=== PATIENT | male | born 1960 | race Caucasian/White ===

== ENCOUNTER 2016-08-11 05:27 | Inpatient (IN) | payer OTHER ==
[2016-08-10 11:54] LABS: BASOPHILS 0.3 % (0.0-2.0); EOSINOPHILS 1.2 % (0-7); HEMATOCRIT 49.3 % (42.0-54.0); HEMOGLOBIN 17.4 g/dL (13.5-17.5); IMMATURE GRANULOCYTES 0.3 % (0-5); LYMPHOCYTES 14.2 % (15-50); MCH 31.8 pg (26.0-34.0); MCHC 35.3 g/dL (31.0-37.0); MCV 90.1 fL (80.0-100.0); MONOCYTES 6.5 % (2-11); NEUTROPHILS 77.5 % (40-80); PLATELET COUNT 203 10x3/uL (130-400); RBC 5.47 10x6/uL (4.20-6.10); RDW 12.5 % (11.5-14.5); WBC 10.3 10x3/uL (4.8-10.8)
[2016-08-10 12:20] LABS: CALC OSMOLALITY 275 mosm/kg (275-300); CARBON DIOXIDE 26.9 mmol/L (21.0-32.0); CHLORIDE - SERUM 105 mmol/L (98-107); CREATININE - SERUM 0.8 mg/dL (0.6-1.3); GLUCOSE 81 mg/dL (74-106); POTASSIUM - SERUM 3.9 mmol/L (3.5-5.1); SODIUM 140 mmol/L (136-145); UREA NITROGEN 8 mg/dL (7-18); eGFR NON AFRICAN AMERICAN > 90 mL/min (90-120)
[~2016-08-11] VITALS: Ht 188 cm; Wt 98.9 kg
[2016-08-11] VITALS (10 sets, daily range): BP systolic 108–132; BP diastolic 54–75; BMI 27.6; BMI 28.0
--- NOTE | ~2016-08-11 | OP ---
PATIENT NAME: DIANN NEWMAN MEDICAL RECORD: [id number] :60 LOCATION:[id number] ADMISSION DATE:08/11/16 SURGEON: PANCHO LARKIN MD DATE OF OPERATION: 08/11/2016 PREOPERATIVE DIAGNOSES: 1. Right colon polyp. 2. Hypertension. 3. Gastroesophageal reflux disease. 4. Tobacco dependence syndrome. POSTOPERATIVE DIAGNOSES: 1. Right colon polyp. 2. Hypertension. 3. Gastroesophageal reflux disease. 4. Tobacco dependence syndrome. PROCEDURE: Hand-assisted laparoscopic right hemicolectomy. SURGEON: Pancho Larkin MD REPORT OF PROCEDURE: The patient's abdomen was prepped and draped in sterile fashion. A cutdown was made around the patient's umbilicus. Electrocautery was used to dissect through the subcutaneous tissues and fascia. We entered the abdominal cavity. Once inside, then a Gelport was inserted with a 5 mm trocar within it. Under direct visualization, a 5 mm trocar was placed in the epigastrium and another 5-mm trocar was placed in the right subcostal region. The right colon was dissected medially, taking down the white line of Toldt and mobilizing this towards the midline. We took down the hepatic flexure and continued our dissection over top of the patient's duodenum and was eventually able to freely mobilize this portion of the colon and distal small bowel. We then inspected the abdomen and saw no sign of any carcinomatosis or lesions present throughout the abdominal cavity. At this point, we eviscerated the colon through the wound protector of the Gelport. The distal ileum was transected about 3 cm proximal to the terminal ileum using a 60 blue load PASCUAL stapler. The transverse colon was transected proximally using a 60 blue load PASCUAL stapler. The patient's mass has been found and was visible in the middle of the specimen. The mesentery was taken down with sequential clamp and tie technique using multiple 3-0 silks. The main right colic vessels were tied off with 2-0 silk stick ties. We then performed a [id number] anastomosis using a 60 blue load PASCUAL stapler at the terminal ileum to the proximal transverse colon. Enterotomies were closed off with a 30 blue load TA stapler and was then oversewn with Lemberted 3-0 silks. This was placed back into the abdominal cavity and the omentum was placed over top of it. The abdomen was then irrigated out thoroughly with normal saline and care was taken to make sure there was no sign of any active bleeding. At this point, the midline fascia was closed with running #1 loop PDS times 2. After the incision was irrigated out and it was closed with martha. COMPLICATIONS: None. CONDITION: Stable. ANESTHESIA: General endotracheal. OPERATIVE REPORT [id number] DIANN NEWMAN BLOOD LOSS: 50 mL. TRANSINT:[id number] Voice Confirmation ID: [id number] DOCUMENT ID: [id number] CC: Azalia Raymond APN [facility] Mclaughlin MD CC: NELL ADAME MD [id number] DICTATION DATE: 08/11/16 1239 VEGETABLE HARVEST WORKER: 08/11/16 1334 ADM [address] [place] [address]
[~2016-08-11 05:27] MED LIST: COZAAR50 MG PO; HYDROCODONE-APA1 TAB PO
--- NOTE | 2016-08-11 13:14 | NUR ---
DR LUA CONSULTED ABOUT THE PATIENTS PAIN OF AN 8. DR LUA ADVISED TO DISCHARGE THE PATIENT TO THE FLOOR AND THE PATIENT MAY BE PLACED ON HIS GASOLINE FINISHER PER SURGEON.
--- NOTE | 2016-08-11 13:32 | NUR ---
RECD TO ROOM 2217 VIA BED FROM RR AWAKE ALERT COLOR ADQ SKIN WARM AND DRY AT PRESENT.ABD INCISIONS CLEAN AND DRY FAMILY AT BEDSIDE AT PRESENT PLAN OF CARE GONE OVER WITH PT AND FAMILY AT PRESENT.
--- NOTE | 2016-08-11 15:00 | NUR ---
C/O PAIN ELECTRONICS TECH IN PROGRESS AT PRESENT BUTTON IN HAND AT PRESENT.
--- NOTE | 2016-08-11 15:57 | NUR ---
Patient Name: DIANN NEWMAN Admission Status: Elective Accout number: [id number] Admission Date: 08-11-2016 : 1960 Admission Diagnosis: Attending: NEREYDA Current LOS: 1 Anticipated DC Date: 08-17-2016 Planned Disposition: Home Primary Insurance: [employer] Discharge Planning Comments: CM MET WITH PATIENT AND (JITENDRA) REGARDING D/C NEEDS AND PLANS. PATIENTS STATED THEY HAVE 3 STEPS W/RAILS TO ENTER HOME AND NO STAIRS INSIDE. PATIENTS DAUGHTER (NEGRITO) WILL DRIVE HIM HOME AT DISCHARGE. PATIENT IS INDEPENDENT WITH HIS CARE AND HAS NO DME AT HOME PER . PATIENTS PCP IS DR. JIMENEZ AND PHARMACY IS [facility] ON [facility]. PATIENT AND REFUSED THE OFFER FOR HOME HEALTH AT THIS TIME. CM WILL CONTINUE TO FOLLOW PATIENT WITH D/C NEEDS AND PLANS. PCP DR. JIMENEZ PHARMACY [facility] ON [address] [phone] JITENDRA () [phone] Animal Cruelty Investigation Supervisor: Riya Noel Is the patient Alert and Oriented? Yes 0 * How many steps to enter\exit or inside your home? 3 W/RAILS 0 * PCP DR. JIMENEZ 0 * Pharmacy [facility] ON [address] 0 * Preadmission Environment Home with Family 0 * ADLs Independent 0 * Equipment None 0 * List name and contact numbers for known caregivers / representatives who currently or will assist patient after discharge: JITENDRA () [phone] 0 * Community resources currently utilized None 0 * Additional services required to return to the preadmission environment? Yes 0 * Can the patient safely return to the preadmission environment? Yes 0 * Has this patient been hospitalized within the prior 30 days at any hospital? No 0 Grand Total: 0
--- NOTE | 2016-08-11 17:16 | NUR ---
STATUS REMAINS UNCHGD AT PRESENT AT BEDSIDE AT PRESENT.
--- NOTE | 2016-08-11 20:00 | NUR ---
ASSESSMENT PER FLOWSHEET. ABDOMINAL INCISION DRSG C/D/I LAP SITESD X2 C/D/I. DELGADO TO BEDSIDE DRAINAGE WITH YELLOW URINE. IV PATENT LEFT FOREARM OF NS AT 125CC'S/HR GEOPHYSICAL LABORATORY CHIEF IN USE OF DILAUDID WITH SETTINGS AT 0.2MG Q10MIN WITH 4MG Q4H L/O. AT BEDSIDE. SR UP X2 CALL LIGHT WITHIN REACH.
--- NOTE | 2016-08-11 22:00 | NUR ---
AWAKE MEDS GIVEN PER JUL. EATING ICE CHIPS NO N OR V NOTED. AT BEDSIDE.
[2016-08-12] VITALS: BP 114/62
--- NOTE | 2016-08-12 | NUR ---
SLEEPING FOR SHORT PERIODS OF TIME.
--- NOTE | 2016-08-12 03:00 | NUR ---
RESTING AT THIS TIME DENIES NEEDS.
[2016-08-12 04:00] VITALS: BP 110/64
[2016-08-12 05:51] LABS: BASOPHILS 0.1 % (0.0-2.0); EOSINOPHILS 0 % (0-7); HEMATOCRIT 43.6 % (42.0-54.0); HEMOGLOBIN 14.5 g/dL (13.5-17.5); IMMATURE GRANULOCYTES 0.2 % (0-5); LYMPHOCYTES 10.1 % (15-50); MCH 30.4 pg (26.0-34.0); MCHC 33.3 g/dL (31.0-37.0); MCV 91.4 fL (80.0-100.0); MEAN PLATELET VOLUME 9.7 fL (7.4-10.4); MONOCYTES 9.4 % (2-11); NEUTROPHILS 80.2 % (40-80); PLATELET COUNT 202 10x3/uL (130-400); RBC 4.77 10x6/uL (4.20-6.10); RDW 12.6 % (11.5-14.5)
[2016-08-12 05:54] LABS: WBC 13.1 10x3/uL (4.8-10.8)
[2016-08-12 06:04] LABS: CALC OSMOLALITY 274 mosm/kg (275-300); CALCIUM 8.1 mg/dL (8.5-10.1); CARBON DIOXIDE 22.2 mmol/L (21.0-32.0); CHLORIDE - SERUM 105 mmol/L (98-107); CREATININE - SERUM 0.7 mg/dL (0.6-1.3); GLUCOSE 99 mg/dL (74-106); POTASSIUM - SERUM 3.9 mmol/L (3.5-5.1); SODIUM 138 mmol/L (136-145); UREA NITROGEN 9 mg/dL (7-18); eGFR NON AFRICAN AMERICAN > 90 mL/min (90-120)
--- NOTE | 2016-08-12 07:20 | NUR ---
ASSESSMENT PER FLOW SHEET.PT WITHOUT DISTRESS.DRESSING TO ABDOMEN CLEAN AND DRY AND INTACT. PAIN 7/10 SCALE.BOLUS PER MILKING SYSTEM INSTALLER ORDERED PER JUL.WANTS DELGADO OUT. PT WANTS FOOD. CALL LIGHT IN REACH
[2016-08-12 08:51] VITALS: BP 116/62
--- NOTE | 2016-08-12 10:59 | NUR ---
DELGADO DC WITH CATH TIP INTACT. 450CC OF YELLOW URINE IN BAG.
[2016-08-12 12:19] VITALS: Ht 188 cm; Wt 98.9 kg
[2016-08-12 12:48] VITALS: BP 111/66
--- NOTE | 2016-08-12 14:47 | NUR ---
FAMILY AT SIDE,WITHOUT DISTRESS.STATES PAIN REMAINS 8/10 SCAKLE TO ABDOMEN,BUT THEN SAYS 5.FAMILY AT BEDSIDE.MONITOR
--- NOTE | 2016-08-12 16:10 | NUR ---
REMAINS WITHOUT NEEDS.FAMILY AT BEDSIDE.
--- NOTE | 2016-08-12 16:21 | NUR ---
PT VOIDED 250CC OF URINE IN URINAL.REMAINS WITHOUT NEEDS.CALL LIGHT IN REACH
[2016-08-12 16:28] VITALS: BP 114/62
--- NOTE | 2016-08-12 19:44 | NUR ---
C/O NAUSEA NO EMESIS. ZOFRAN 4MG IVP GIVEN FOR RELIEF.
--- NOTE | 2016-08-12 20:00 | NUR ---
ASSESSMENT PER FLOWSHEET. IV PATENT LEFT WRIST OF NS AT 125CC'S/HR. VESSEL SCRAPPER HELPER OF DILAUDID IN USE WITH SETTINGS AT 0.2MG Q10MIN W/4MG Q4H L/O. VOIDS WELL IN URINAL ABDOMINAL INCISION C/D/I. AT BEDSIDE.
--- NOTE | 2016-08-12 22:00 | NUR ---
MEDS GIVEN PER MAR.
--- NOTE | 2016-08-13 | NUR ---
RESTING QUIETLY DENIES NEEDS. STATES NAUSEA MED DID HELP.
--- NOTE | 2016-08-13 03:24 | NUR ---
EYES CLOSED RESPIRATIONS WITH EASE AND UNLABORED MEDS PER JUL.
--- NOTE | 2016-08-13 04:50 | NUR ---
IV IN LEFT WRIST LEAKING. REMOVED WITH CATHETER TIP INTACT AND RE-SITED IN RIGHT WRIST, USING 20 GUAGE CATHETER IN ONE STICK. IV FLUIDS AND NEIGHBORHOOD COORDINATOR RE-STARTED. PT TOLERATED WELL.
[2016-08-13 06:20] LABS: BASOPHILS 0.2 % (0.0-2.0); EOSINOPHILS 0.7 % (0-7); HEMATOCRIT 41.9 % (42.0-54.0); HEMOGLOBIN 14.2 g/dL (13.5-17.5); IMMATURE GRANULOCYTES 0.2 % (0-5); LYMPHOCYTES 14.3 % (15-50); MCH 31.3 pg (26.0-34.0); MCHC 33.9 g/dL (31.0-37.0); MCV 92.3 fL (80.0-100.0); MEAN PLATELET VOLUME 9.6 fL (7.4-10.4); MONOCYTES 10.4 % (2-11); NEUTROPHILS 74.2 % (40-80); PLATELET COUNT 179 10x3/uL (130-400); RBC 4.54 10x6/uL (4.20-6.10); RDW 12.6 % (11.5-14.5)
[2016-08-13 06:36] LABS: WBC 8.3 10x3/uL (4.8-10.8)
[2016-08-13 06:41] LABS: CALC OSMOLALITY 276 mosm/kg (275-300); CARBON DIOXIDE 22.9 mmol/L (21.0-32.0); CHLORIDE - SERUM 107 mmol/L (98-107); CREATININE - SERUM 0.7 mg/dL (0.6-1.3); GLUCOSE 75 mg/dL (74-106); POTASSIUM - SERUM 3.5 mmol/L (3.5-5.1); SODIUM 140 mmol/L (136-145); UREA NITROGEN 9 mg/dL (7-18); eGFR NON AFRICAN AMERICAN > 90 mL/min (90-120)
--- NOTE | 2016-08-13 07:20 | NUR ---
ASSESSMENT PER FLOW SHEET.PT WITHOUT DISTRESS.COFFEE PROVIDED.PT SITTING UP AT BEDSIDE.STATES PAIN 8/10 SCALE ,BUT DECLINES USE OF JOURNAL ENTRY AUDIT CLERK.ALSO STATES HE HAS BEEN PASING GAS,BUT HAS NOT HAD BM.MONITOR
--- NOTE | 2016-08-13 09:30 | NUR ---
TOLERATED CL BREAKFAST WITHOUT NAUSEA.DENIES NEEDS.CALL LIGHT IN REACH
[2016-08-13 09:52] VITALS: BP 135/83
[2016-08-13 11:48] VITALS: BP 136/88
--- NOTE | 2016-08-13 13:49 | NUR ---
TOLERAED FYLL LIQUID DIET.REMAINS WIHTOUT NEEDS.STATES HAD SMALL BM.UNSEEN BY NURSING.
--- NOTE | 2016-08-13 15:43 | NUR ---
SHOWER COMPLETE.REMAINS WITHOUT NAUSEA.PAIN 6/10 SCALE TO ABDOMEN.MEDS ORDERED PER JUL.
[2016-08-13 15:49] VITALS: BP 111/67
--- NOTE | 2016-08-13 16:40 | NUR ---
PAIN CONTROLLED WITH PO PAIN MEDS.CALL LIGHT IN REACH
--- NOTE | 2016-08-13 19:35 | NUR ---
RECIEVED SHIFT REPORT. PT IS LYING IN BED. ALERT AND ORIENTED AND ABLE TO VERBALIZE NEEDS. IV IS PATENT AND SALINE LOC AT THIS TIME. PT IS AMBULATORY BUT WAS INSTRUCTED TO CALL FOR ANY ASSISTANCE NEEDED. SCD'S OFF AT THIS TIME. PT STATES PAIN IS 7/10. NO NEEDS ARE VERBALIZED AT THIS TIME. WILL CONTINUE TO MONITOR. VISITOR AT BEDSIDE. SIDE RAILS ARE UP X 2. BED IS IN LOWEST POSITION. CALL LIGHT IS WITHIN REACH.
[2016-08-13 20:00] VITALS: BP 109/70
--- NOTE | 2016-08-13 20:55 | NUR ---
SHIFT ASSESSMENT COMPLETED. SCHEDULED COZAAR HELD AT THIS TIME DUETO B/P=100/55. PT C/O PAIN 11/16. ADMINISTERED PRESCRIBED PRN NORCO PER ORDER. DENIES FURTHER NEEDS. VISITOR AT BEDSIDE. SIDE RAILS X 2. BED LOW. CALL LIGHT IN REACH.
--- NOTE | 2016-08-14 07:00 | NUR ---
REPORT RECEIVED FROM COMBER SETTER NURSE. CALL LIGHT IN REACH.
--- NOTE | 2016-08-14 07:15 | NUR ---
DRESSED AND AWAKE.WANTING DC TODAY.WITHOUT DISTRESS OR NAUSEA.CALL LIGHT IN REACH
[2016-08-14 08:03] VITALS: BP 122/70
--- NOTE | 2016-08-14 08:50 | NUR ---
AMBULATING IN HALLWAY ADLIB WITH . TOLERATING WELL.
[2016-08-14] MEDS ORDERED: HYDROCODONE-APA1 TAB PO (09:47)
--- NOTE | 2016-08-14 09:51 | NUR ---
DR. LARKIN IS IN ROOM TO SEE THE PATIENT AT THIS TIME.
--- NOTE | 2016-08-14 10:30 | NUR ---
CM REASSESSMENT NOTE: PATIENT IS DISCHARGING HOME TODAY- DRIVING HIM. PATIENT REFUSED HOME HEALTH AND HAD NO OTHER NEEDS FOR DISCHARGE.
--- NOTE | 2016-08-14 10:33 | NUR ---
ASSESSMENT COMPLETED. IV DC'D WITH TIP INTACT.
--- NOTE | 2016-08-14 11:04 | NUR ---
DC INSTRUCTIONS EXPLAINED TO PATIENT, , AND DAUGHTER. VERBALIZED UNDERSTANDING. RX FOR NORCO HANDED TO PATIENT. DC'D TO VEHICLE WITH FAMILY. REFUSES WHEELCHAIR.
== END 2016-08-14 11:04 | disposition home or self-care (01) | DRG 331 ==
LOC: D.SDCHOLD 05:27 → D.MS 05:27 → D.SDCHOLD 11:00 → D.MS 13:25
PROVIDERS: ADMIT Surgery
PROC: 0DTF0ZZ Resection of Right Large Intestine, Open Approach (ICD-10-PCS; principal; 2016-08-11 11:00)
DX: D12.3 Benign neoplasm of transverse colon (principal); I10 Essential (primary) hypertension; K21.9 Gastro-esophageal reflux disease without esophagitis; F17.200 Nicotine dependence, unspecified, uncomplicated

== ENCOUNTER 2016-10-24 11:42 | Emergency (ER) | payer OTHER ==
[2016-08-12 12:19] VITALS: BMI 28.0
[2016-10-24 12:34] LABS: BASOPHILS 0.4 % (0-2); EOSINOPHILS 2.2 % (0-7); HEMATOCRIT 45.9 % (42.0-54.0); HEMOGLOBIN 15.9 g/dL (13.5-17.5); IMMATURE GRANULOCYTES 0.3 % (0-5); MCH 30.8 pg (26.0-34.0); MCHC 34.6 g/dL (31.0-37.0); MEAN PLATELET VOLUME 8.9 fL (7.4-10.4); MONOCYTES 8.1 % (2-11); PLATELET COUNT 191 10x3/uL (130-400); RBC 5.16 10x6/uL (4.20-6.10); RDW 12.7 % (11.5-14.5); WBC 7.2 10x3/uL (4.8-10.8)
[2016-10-24 12:49] LABS: ALBUMIN 3.4 g/dL (3.4-5.0); ALKALINE PHOSPHATASE 124 U/L (46-116); ALT (SGPT) 58 U/L (10-68); BILIRUBIN - TOTAL 0.48 mg/dL (0.2-1.3); CALC OSMOLALITY 274 mosm/kg (275-300); CALCIUM 8.9 mg/dL (8.5-10.1); CARBON DIOXIDE 26.7 mmol/L (21.0-32.0); CHLORIDE - SERUM 104 mmol/L (98-107); GLUCOSE 111 mg/dL (74-106); LIPASE 221 U/L (73-393); POTASSIUM - SERUM 3.8 mmol/L (3.5-5.1); PROTEIN - SERUM 7.5 g/dL (6.4-8.2); SODIUM 138 mmol/L (136-145); UREA NITROGEN 8 mg/dL (7-18); eGFR NON AFRICAN AMERICAN 82 mL/min (90-120)
== END 2016-10-24 13:48 | disposition home or self-care (01) ==
LOC: D.ER 11:42
PROVIDERS: Emergency Medicine
DX: T40.2X5A Adverse effect of other opioids, initial encounter (principal); K59.00 Constipation, unspecified; I10 Essential (primary) hypertension

== ENCOUNTER → 2016-11-12 10:35 | Outpatient (CLI) | payer OTHER ==
[2016-08-12 12:19] VITALS: BMI 28.0
== END | disposition home or self-care (01) ==
LOC: D.MRI 10:35
DX: M54.12 Radiculopathy, cervical region (principal)

== ENCOUNTER 2017-01-21 05:47 | Day surgery (SDC) | payer OTHER | END 2017-01-21 16:15 | disposition home or self-care (01) | LOC: D.OPS 05:47 | DX: M75.42 Impingement syndrome of left shoulder (principal); M54.12 Radiculopathy, cervical region; M25.512 Pain in left shoulder; Z01.812 Encounter for preprocedural laboratory examination; M13.812 Other specified arthritis, left shoulder ==

== ENCOUNTER 2017-11-25 12:10 | Emergency (ER) | payer OTHER ==
[~2017-11-25] VITALS: Ht 188 cm; Wt 111.4 kg
[2017-11-25 12:47] VITALS: Ht 188 cm; Wt 111.4 kg
[2017-11-25 13:43] LABS: BASOPHILS 0.5 % (0-2); HEMATOCRIT 46.5 % (42.0-54.0); HEMOGLOBIN 16.5 g/dL (13.5-17.5); IMMATURE GRANULOCYTES 0.1 % (0-5); LYMPHOCYTES 19.5 % (15-50); MCH 30.6 pg (26.0-34.0); MCHC 35.5 g/dL (31.0-37.0); MCV 86.3 fL (80.0-100.0); MEAN PLATELET VOLUME 9.1 fL (7.4-10.4); NEUTROPHILS 68.9 % (40-80); RBC 5.39 10x6/uL (4.20-6.10); RDW 12.6 % (11.5-14.5); WBC 7.7 10x3/uL (4.8-10.8)
[2017-11-25 13:45] LABS: PLATELET COUNT 197 10x3/uL (130-400)
[2017-11-25 13:59] LABS: ALBUMIN 3.5 g/dL (3.4-5.0); ALKALINE PHOSPHATASE 118 U/L (46-116); ALT (SGPT) 25 U/L (10-68); BILIRUBIN - TOTAL 0.53 mg/dL (0.2-1.3); CALC OSMOLALITY 278 mosm/kg (275-300); CALCIUM 8.6 mg/dL (8.5-10.1); CARBON DIOXIDE 24.9 mmol/L (21.0-32.0); CHLORIDE - SERUM 106 mmol/L (98-107); CREATININE - SERUM 0.9 mg/dL (0.6-1.3); GLUCOSE 85 mg/dL (74-106); POTASSIUM - SERUM 3.8 mmol/L (3.5-5.1); PROTEIN - SERUM 7.7 g/dL (6.4-8.2); SODIUM 141 mmol/L (136-145); UREA NITROGEN 10 mg/dL (7-18); eGFR NON AFRICAN AMERICAN > 90 mL/min (90-120)
[2017-11-25 14:04] LABS: TROPONIN-I < 0.017 ng/mL (0.000-0.060)
[2017-11-25 18:44] VITALS: BP 113/70
== END 2017-11-25 18:40 | disposition home or self-care (01) ==
LOC: D.ER 12:10
PROVIDERS: Emergency Medicine
DX: R42 Dizziness and giddiness (principal); R06.02 Shortness of breath; I10 Essential (primary) hypertension

== ENCOUNTER → 2018-01-03 15:03 | Outpatient (CLI) | payer OTHER ==
[2017-11-25 12:47] VITALS: BMI 31.5
== END | disposition home or self-care (01) ==
LOC: D.CT 15:03
DX: R93.8 Abnormal findings on diagnostic imaging of other specified body structures (principal)

== ENCOUNTER 2018-04-02 12:10 | Emergency (ER) | payer OTHER ==
[~2018-04-02] VITALS: Ht 188 cm; Wt 113.6 kg
[2018-04-02 12:11] VITALS: Ht 188 cm; Wt 113.6 kg
[2018-04-02 12:41] LABS: BASOPHILS 0.4 % (0-2); EOSINOPHILS 2.9 % (0-7); HEMATOCRIT 50.1 % (42.0-54.0); HEMOGLOBIN 17.5 g/dL (13.5-17.5); IMMATURE GRANULOCYTES 0.4 % (0-5); LYMPHOCYTES 38.8 % (15-50); MCH 30.9 pg (26.0-34.0); MCHC 34.9 g/dL (31.0-37.0); MCV 88.4 fL (80.0-100.0); MONOCYTES 11.4 % (2-11); NEUTROPHILS 46.1 % (40-80); PLATELET COUNT 143 10x3/uL (130-400); RBC 5.67 10x6/uL (4.20-6.10); WBC 8.4 10x3/uL (4.8-10.8)
[2018-04-02 13:02] LABS: ALBUMIN 3.6 g/dL (3.4-5.0); ALKALINE PHOSPHATASE 112 U/L (46-116); ALT (SGPT) 22 U/L (10-68); BILIRUBIN - TOTAL 0.42 mg/dL (0.2-1.3); CALC OSMOLALITY 278 mosm/kg (275-300); CALCIUM 8.9 mg/dL (8.5-10.1); CARBON DIOXIDE 22.8 mmol/L (21.0-32.0); CHLORIDE - SERUM 105 mmol/L (98-107); CREATININE - SERUM 0.9 mg/dL (0.6-1.3); GLUCOSE 89 mg/dL (74-106); POTASSIUM - SERUM 3.3 mmol/L (3.5-5.1); PROTEIN - SERUM 7.6 g/dL (6.4-8.2); SODIUM 140 mmol/L (136-145); UREA NITROGEN 15 mg/dL (7-18); eGFR NON AFRICAN AMERICAN > 90 mL/min (90-120)
[2018-04-02] MEDS ORDERED: K-DUR20 MEQ PO (13:11)
[2018-04-02] MEDS ORDERED: LASIX20 MG PO (13:11)
[2018-04-02 13:13] LABS: CKMB 0.4 U/L (0.0-3.6); CREATINE KINASE 58 UL (21-232); TROPONIN-I < 0.017 ng/mL (0.000-0.060)
[2018-04-02 14:46] VITALS: BP 121/73
== END 2018-04-02 14:46 | disposition home or self-care (01) ==
LOC: D.ER 12:10
PROVIDERS: Emergency Medicine
DX: R06.00 Dyspnea, unspecified (principal); I11.0 Hypertensive heart disease with heart failure; I50.9 Heart failure, unspecified

== ENCOUNTER → 2018-04-20 14:13 | Outpatient (CLI) | payer OTHER ==
[2018-04-02 12:11] VITALS: BMI 32.1
--- NOTE | ~2018-04-20 | ST ---
PATIENT:DIANN NEWMAN MEDICAL RECORD: [id number] SEX: M LOCATION:[facility] ORDER #: ADMISSION DATE: 04/20/18 AGE OF PATIENT: 58 REFERRING PHYSICIAN: INTERPRETING PHYSICIAN: LAURA WOMACK MD DATE OF SERVICE: 04/20/2018 INDICATION: Chest pain of unknown etiology. He was exercised on standard Jose Alejandro protocol for 6 minutes achieving greater than 85% max target heart rate response with no EKG changes, no dysrhythmias, no anginal symptomatology. OVERALL IMPRESSION: Negative for inducible ischemia at adequate cardiac workload. TRANSINT:[id number] Voice Confirmation ID: [id number] DOCUMENT ID: [id number] LAURA WOMACK MD at 0941 CC: [id number] DICTATION DATE: 04/21/18 1204 JACK OF ALL TRADES: 04/22/18 0017 DEP CLI 04/20/18 [id number] [place] [address]
[~2018-04-20 14:13] MED LIST changes: +K-DUR20 MEQ PO; +LASIX20 MG PO
== END | disposition home or self-care (01) ==
LOC: D.HCCARDIO 14:13
DX: R07.9 Chest pain, unspecified (principal)

== ENCOUNTER → 2018-09-08 15:07 | Outpatient (CLI) | payer OTHER ==
[2018-04-02 12:11] VITALS: BMI 32.1
[2018-09-08 15:14] LABS: BASOPHILS 0.4 % (0-2); EOSINOPHILS 2.4 % (0-7); IMMATURE GRANULOCYTES 0.2 % (0-5); MCH 30.7 pg (26.0-34.0); MCHC 34.8 g/dL (31.0-37.0); MCV 88.1 fL (80.0-100.0); MEAN PLATELET VOLUME 9.4 fL (7.4-10.4); MONOCYTES 9.1 % (2-11); NEUTROPHILS 64.9 % (40-80); RBC 5.22 10x6/uL (4.20-6.10); RDW 12.8 % (11.5-14.5); WBC 8.3 10x3/uL (4.8-10.8)
[2018-09-08 15:17] LABS: PLATELET COUNT 230 10x3/uL (130-400)
[2018-09-10 18:06] LABS: ANGIOTENSIN CONVERTING ENZYME 66 U/L (14-82)
[2018-09-12 15:10] LABS: FUNGAL - ASP FLAVUS Negative (Neg:<1:1); FUNGAL - ASP NIGER Negative (Neg:<1:1); FUNGAL - ASPER FUMIGATUS Negative (Neg:<1:1)
== END | disposition home or self-care (01) ==
LOC: D.LABREF 15:07
PROVIDERS: ATTEND Internal Medicine Pulmonary Disease
DX: R91.8 Other nonspecific abnormal finding of lung field (principal); J44.9 Chronic obstructive pulmonary disease, unspecified

== ENCOUNTER → 2018-11-03 13:29 | Outpatient (CLI) | payer OTHER ==
[2018-04-02 12:11] VITALS: BMI 32.1
== END | disposition home or self-care (01) ==
LOC: D.RT 13:29
PROVIDERS: ATTEND Internal Medicine Pulmonary Disease
DX: R06.00 Dyspnea, unspecified (principal); R91.8 Other nonspecific abnormal finding of lung field

== ENCOUNTER → 2019-05-04 10:02 | Outpatient (CLI) | payer OTHER ==
[2018-04-02 12:11] VITALS: BMI 32.1
--- NOTE | ~2019-05-04 | ST ---
PATIENT:DIANN NEWMAN MEDICAL RECORD: [id number] SEX: M LOCATION:[facility] ORDER #: ADMISSION DATE: 05/04/19 AGE OF PATIENT: 59 REFERRING PHYSICIAN: INTERPRETING PHYSICIAN: LAURA WOMACK MD DATE OF SERVICE: 05/04/2019 PROCEDURE: Nuclear stress test. INDICATION: Angina, hypertension. TECHNIQUE: He was exercised on standard Lexiscan protocol with 33 mCi of sestamibi injected at peak stress, 10 mCi used previously for rest images. FINDINGS: Gated SPECT reveals preserved ejection fraction at 64% with good wall motioning and thickening and brightening throughout all segments. SPECT imaging Cardiolite was used as myocardial perfusion agent. There is reversible ischemia inferiorly and apically. This includes the basal, mid, apical, inferior segments as well as the apex itself. The degree of reversibility is moderate. The amount of myocardial involved is moderate. OVERALL IMPRESSION: This is an intermediate risk abnormal nuclear stress test with a moderate amount of myocardium at risk inferiorly and apically suggestive of hemodynamically significant coronary artery disease. TRANSINT:[id number] Voice Confirmation ID: [id number] DOCUMENT ID: [id number] LAURA WOMACK MD CC: JHOANA JIMENEZ [id number] DICTATION DATE: 05/05/19 1521 STAMPING DIE MAKER: 05/06/19 0810 DEP CLI 05/04/19 [id number] [place] [address]
== END | disposition home or self-care (01) ==
LOC: D.HCCARDIO 10:02
PROVIDERS: ATTEND Internal Medicine Interventional Cardiology
DX: I20.9 Angina pectoris, unspecified (principal)

== ENCOUNTER 2019-05-17 06:42 | Outpatient (CLI) | payer OTHER ==
[~2019-05-17] VITALS: Ht 188 cm; Wt 111.4 kg
--- NOTE | ~2019-05-17 | HEMODYNAMI ---
PATIENT:DIANN NEWMAN MEDICAL RECORD: [id number] : 60 LOCATION:[facility] ADMISSION DATE: 05/17/19 Generatedon:05/17/20199:50 Patient name: DIANN NEWMAN Patient #: [id number] SSN: [id number] : 1960 Date of study: 05/17/2019 Page: Of Hemodynamic Procedure Report Patient Data Patient Demographics Procedure consent was obtained First Name: DIANN Gender: Male Last Name: TRENT : 1960 Middle Initial: EDWARD Age: 59 year(s) Patient #: [id number] Race: SSN: [id number] Additional ID: [id number] Contact details Address: [address] [place] [address] State: [place] City: [facility] [place], [place] Zip code: [address] Admission Admission Data Admission Date: 05/17/2019 Admission Time: 6:42 Arrival Date: 05/17/2019 Arrival Time: 0:00 Admit Source: Other Insurance Payor: Medicare [facility] #: [id number] Height (in.): 74.02 BSA: 2.37 (m2) Height (cm.): 188 BMI: 31.41 (kg/m2) Weight (lbs.): 244.71 Weight (kg.): 111 Lab Results Lab Result Date: 05/17/2019 Lab Result Time: 0:00 Biochemistry Name Units Result Min Max BUN mg/dl 11 --(-*--)-- 7 18 Creatinine mg/dl 1 --(--*-)-- 0.6 1.3 eGFR ml/min 81 *-(----)-- 90 120 NONAFRICAN CBC Name Units Result Min Max Hematocrit % 48.5 --(--*-)-- 42 54 Hemoglobin g/dl 16.7 --(---*)-- 13.5 17.5 Procedure Procedure Types Cath Procedure Diagnostic Procedure LHC LHC w/Coronaries Procedure Description Procedure Date Procedure Date: 05/17/2019 Procedure Start Time: 9:35 Procedure End Time: 9:46 Procedure Staff Name Function Sai Murray MD Performing Physician Tigre Powers RT Monitor Vishnu Longoria RN Nurse Tigre Powers RT Scrub Britatny Adams RT Monitor Procedure Data Cath Procedure Fluoroscopy Diagnostic fluoroscopy Total fluoroscopy Time: 2.4 time: 2.4 min min Diagnostic fluoroscopy Total fluoroscopy dose: 609 dose: 609 mGy mGy Contrast Material Contrast Material Type Amount (ml) Isovue 300 53 Entry Location Entry Primary Successful Side Size Upsize Upsize Entry Closure Seymour ccessful Closure Location (Fr) 1 (Fr) 2 (Fr) Remarks Device Remarks Radial Right 6 Fr Mechanical artery Short Compression Estimated blood loss: 5 ml Diagnostic catheters Device Type Used For End Catheter Placement DIAGNOSTIC [place] 110cm 5 Procedure Fr catheter ([id number]) DIAGNOSTIC AR2 MOD 5 Fr Procedure catheter ([id number]) Procedure Complications No complications Procedure Medications Medication Administration Route Dosage Oxygen etCO2 Nasal cannula 2 l/min Lidocaine 2% added to field 20 Heparin Flush Bag added to field 2 bags (1000units/500ml NS) 0.9% NaCl I.V. 100 ml/hr Radial Cocktail added to field 1 syringe (Verapamil 2mg/Nitro 400mcg/Heparin 1500units) Versed I.V. 2 mg Fentanyl I.V. 100 mcg Versed I.V. 2 mg Fentanyl I.V. 100 mcg Hemodynamics Rest BSA: 2.37 (m2) HGB: 16.7 (g/dl) O2 Consumption: Estimated: 268.39 (ml/min) O2 Co nsumption indexed: Estimated:113.24 (ml/min/m) Heart Rate: 58 (bpm) Snapshots Pre Cath Intra NCS Post Cath Vital Signs Time Heart Resp SPO2 etCO2 NIBP (mmHg) Rhythm Pain Sedation Rate (ipm) (%) (mmHg) Status Level (bpm) 9:28:12 59 17 97 0 119/82(91) NSR 0 (11) 10(A) , No pain 9:32:24 56 13 96 21.2 127/78(100) NSR 0 (11) 10(A) , No pain 9:36:42 55 15 95 8.3 116/56(99) NSR 0 (11) 10(A) , No pain 9:40:56 56 14 94 33.3 101/66(76) NSR 0 (11) 9(A) , No pain 9:45:49 56 17 96 9.8 91/62(72) NSR 0 (11) 10(A) , No pain Medications Time Medication Route Dose Verified Delivered Reason Notes Effectiveness by by 9:30:20 Oxygen etCO2 2 l/min Saixuan Mares used for Nasal Trevor Longoria RN procedure cannula 9:30:29 Lidocaine 2% added 20ml Saixuan Gibbs for local to vial Trevor Murray MD anesthetic field 9:30:34 Heparin Flush added 2 bags Sai Gibbs used for Bag to Trevor Murray MD procedure (1000units/500ml field NS) 9:30:42 0.9% NaCl I.V. 100 Sai Buffie Per ml/hr Trevor Longoria RN physician 9:32:05 Radial Cocktail added 1 Sai Gibbs for (Verapamil to syringe Trevor Murray MD vasodilation 2mg/Nitro field 400mcg/Heparin 1500units) 9:35:01 Versed I.V. 2 mg Sai Felixie for sedation Trevor Longoria RN 9:36:09 Fentanyl I.V. 100 mcg Sai Mares for sedation Trevor Longoria RN 9:40:29 Versed I.V. 2 mg Sai Felixie for sedation Trevor Longoria RN 9:40:33 Fentanyl I.V. 100 mcg Sai Mares for sedation Trevor Longoria RN Procedure Log Time Note 8:54:42 Tigre Powers RT(R) sent for patient. Start room use. 8:54:43 Time tracking: Regular hours (M-F 7:00 - 5:00) 8:54:47 Plan of Care:Hemodynamics will remain stable., Cardiac rhythm will remain stable., Comfort level will be maintained., Respiratory function will remain adequate., Patient/ family verbilizes understanding of procedure., Procedure tolerated without complication., Recovers from procedure without complications.. 9:12:52 Informed consent obtained and on chart 9:13:02 Arrival Date: 05/17/2019 12:00:00 AM 9:13:23 Insurance Payor : Medicare 9:13:48 Patient Height : 74.02 inches 9:13:54 Patient Weight : 244.71 lbs 9:14:11 Admit Source: Other 9:14:57 Lab Result : BUN 11 mg/dl 9:14:57 Lab Result : Hemoglobin 16.7 g/dl 9:14:57 Lab Result : Hematocrit 48.5 % 9:14:57 Lab Result : Creatinine 1 mg/dl 9:14:57 Lab Result : eGFR NONAFRICAN 81 ml/min 9:16:57 Patient received from Pre/Post Procedure Room to CCL 1 Alert and oriented. Tansferred to table in Supine position. 9:16:59 Warm blankets applied, and aston hugger turned on for patient comfort. 9:17:00 Correct patient and procedure confirmed by team. 9:17:00 ECG and BP/O2 sat monitors applied to patient. 9:27:10 Vital chart was started 9:27:12 Baseline sample Acquired. 9:27:21 Rhythm: sinus rhythm 9:27:24 Full Disclosure recording started 9:27:51 H&P Date Dictated: 04/24/2020 Within 30 days and on chart., H&P Addendum completed by physician on day of procedure. (MUST COMPLETE FOR ALL OUTPATIENTS). 9:27:52 Pre-procedure instructions explained to patient. 9:27:53 Pre-op teaching completed and patient verbalized understanding. 9:27:57 Family in patients room. 9:27:59 Patient NPO since Midnight. 9:28:01 Is the patient allergic to Iodine/contrast media? No. 9:28:16 Is patient on blood thinner?No 9:28:19 ACC The patient was administered the following blood thiners within the last 24 hours: None 9:28:21 Patient diabetic? No. 9:28:28 Previous problem with sedation/anesthesia? No ? 9:28:31 Snore? Yes 9:28:32 Sleep apnea? No 9:28:33 Deviated septum? No 9:28:34 Opens mouth fully? Yes 9:28:35 Sticks out tongue? Yes 9:28:48 Airway obstruction? Yes COPD/ASTHMA 9:28:54 Dentures? No ? 9:29:01 Pre procedure: right dorsailis pedis pulse 1+ Palpable, but thready & weak; easily obliterated 9:29:05 Modified Cresencio's test Ulnar < 7 seconds 9:29:08 Patient pain scale 0/10 ?. 9:29:19 IV patent on arrival in right forearm with 0.9% NaCl at KVO. 9:29:25 Lab results completed and on chart. 9:29:33 Right Radial & Right Groin area was prepped with chlora-prep and draped in sterile fashion 9:29:35 Alarms reviewed by R. N. 9:29:35 Sharps counted by scrub and verified by R.N. 9:29:42 Use device set Radial Dx or PCI 9:29:43 Tegaderm 4 x 4 (1626W) opened to sterile field. 9:29:44 ACIST Manifold (56034) opened to sterile field. 9:29:45 ACIST Hand Control (48427) opened to sterile field. 9:29:45 ACIST Syringe (29912) opened to sterile field. 9:29:46 Medline Cath Pack ([id number]) opened to sterile field. 9:29:46 Bag Decanter (2002) opened to sterile field. 9:29:47 MBrace Wrist Support ([id number]) opened to sterile field. 9:29:48 EMERALD Guide Wire (173-434) opened to sterile field. 9:29:48 SHEATH 6FR RAIN (1629624) opened to sterile field. 9:30:20 Oxygen 2 l/min etCO2 Nasal cannula was administered by Vishnu Longoria RN; used for procedure; Verbal order read back and verified. 9:30:29 Lidocaine 2% 20ml vial added to field was administered by Sai Murray MD; for local anesthetic; Verbal order read back and verified. 9:30:34 Heparin Flush Bag (1000units/500ml NS) 2 bags added to field was administered by Sai Murray MD; used for procedure; Verbal order read back and verified. 9:30:37 2) 60-89 Mildly reduced kidney function, and other findings (as for stage 1) point to kidney disease. 9:30:41 Maximum allowable contrast dose (3.7 X eGFR X 0.75)225 ml. 9:30:42 0.9% NaCl 100 ml/hr I.V. was administered by Vishnu Longoria RN; Per physician; Verbal order read back and verified. 9:32:05 Radial Cocktail (Verapamil 2mg/Nitro 400mcg/Heparin 1500units) 1 syringe added to field was administered by Sai Murray MD; for vasodilation; Verbal order read back and verified. 9:34:26 Stress Test: yes; abnormal inferior, apically 9:34:29 Risk of Mortality: 0.1 9:34:32 Risk of blood transfusion: 0.1 9:34:35 Risk of ARTHUR: 1.3 9:34:40 --------ALL STOP TIME OUT------ 9:34:40 Final Timeout: patient, procedure, and site verified with staff and physician. All members of the team are in agreement. 9:34:45 Right Radial & Right Groin site verified by team. 9:34:50 Fire Safety Assessment: A--An alcohol-based skin anteseptic being used preoperatively., C--Open oxygen or nitrous oxide is being used., D--An ESU, laser, or fiber-optic light is being used. 9:34:52 Physical assessment completed. ASA score P 2 - A patient with mild systemic disease as per Sai Murray MD. 9:34:56 Sedation plan: IV Moderate Sedation Medication:Versed, Fentanyl 9:35:01 Versed 2 mg I.V. was administered by Vishnu Longoria RN; for sedation; Verbal order read back and verified. 9:35:25 Procedure started. 9:35:32 Local anesthetic to right radial artery with Lidocaine 2% by Sai Murray MD.INITIAL ACCESS ONLY 9:36:09 Fentanyl 100 mcg I.V. was administered by Vishnu Longoria RN; for sedation; Verbal order read back and verified. 9:36:16 A 6 Fr Short sheath was inserted into the Right Radial artery 9:36:23 A DIAGNOSTIC [place] 110cm 5 Fr catheter (195174) was advanced over the wire and used for Procedure. 9:38:12 LV angiography performed. 9:38:14 LV gram done using TRAYLOR 9:38:19 EF : 55 % 9:39:10 Injector settings: Ml/sec: 5, Volume: 15, 9:39:43 Zero performed for pressure channel P1 9:39:46 Zero performed for pressure channel P1 9:39:49 Zero performed for pressure channel P1 9:40:08 LCA angiography performed. 9:40:11 Catheter exchanged over wire. 9:40:26 A DIAGNOSTIC AR2 MOD 5 Fr catheter ([id number]) was advanced over the wire and used for Procedure. 9:40:29 Versed 2 mg I.V. was administered by Vishnu Longoria RN; for sedation; Verbal order read back and verified. 9:40:33 Fentanyl 100 mcg I.V. was administered by Vishnu Longoria RN; for sedation; Verbal order read back and verified. 9:41:20 RCA angiography performed. 9:41:52 Catheter removed. 9:41:56 ZEPHYR REGULAR TR BAND (558231) opened to sterile field. 9:42:11 Sheath removed intact; hemostasis achieved with Mechanical Compression to the Right Radial artery. 9:42:14 Procedure ended.(Physican Out) 9:43:53 Fluoroscopy time 02.40 minutes. 9:43:59 Fluoroscopy dose: 609 mGy 9:43:59 Flurop Dose total: 609 9:44:06 Dose Area Product 56975 mGy/cm. 9:44:10 Contrast amount:Isovue 300 53ml. 9:44:12 Maximum allowable dose exceeded? No. 9:44:13 Sharps counted by scrub and verified by R.N. 9:44:25 Post-procedure physical assessment completed. ASA score P 2 - A patient with mild systemic disease as per Sai Murray MD. 9:44:32 Post procedure rhythm: unchanged. 9:44:36 Estimated blood loss: 5 ml 9:44:38 Post procedure instruction explained to patient.Patient verbalizes understanding. 9:44:38 Patient needs reinforcement of post procedure teaching. 9:45:30 Procedure and supply charges have been captured, reviewed, submitted and are correct. 9:45:33 Procedure Complication : No complications 9:45:35 Vital chart was stopped 9:45:37 [facility] Findings: mild to moderate CAD (<70%) 9:45:39 Operative report dictated upon procedure completion. 9:45:39 See physician's report for complete and final results. 9:45:54 Report given to Pre/Post Procedure Room. 9:45:57 Patient transfered to Pre/Post Procedure Room with Bed. 9:46:08 Procedure ended. 9:46:08 Full Disclosure recording stopped 9:46:13 End room use (Document Last) 9:46:35 Bond band inflated with 10cc of air. Device Usage Item Name Manufacture Quantity Catalog Hospital Part Current Minima l Lot# / Number Charge Number Stock Stock Serial# Code Tegaderm 4 1 1626W 332324 [id number] [id number] 5 x 4 (1626W) ACIST Acist 1 56744 812813 436946 356537 5 Manifold Medical (11671) Systems Inc ACIST Hand Acist 1 31630 989382 296375 517866 5 Control Medical (16723) Systems Inc ACIST Acist 1 52180 665231 672680 825389 20 Syringe Medical (16376) Systems Inc Medline Medline 1 [id number] 727785 51548 297376 5 Cath Pack ([id number]) Bag Microtek 1 2001S 656565 69005 710309 5 Decanter Medical Inc. () MBrace Advanced 1 140-0250-00 599394 18835 894536 5 Wrist Vascular Support Dynamics ([id number]) EMERALD Cardinal 1 502-455 991849 989259 221996 5 Guide Wire Health (502455) SHEATH 6FR Cardinal 1 [id number] 687924 0522301 104692 5 [facility] Health (7008900) DIAGNOSTIC Terumo 1 405013 275855 673012 967128 5 [place] 110cm 5 Fr catheter (175573) DIAGNOSTIC Cardinal 1 [id number] 106904 258419 737412 20 AR2 MOD 5 Health Fr catheter (057165R) ZEPHYR Cardinal 1 181220 854211 0212026 032476 5 REGULAR TR Health BAND (334260) Signature Audit [place] Stage Time Signature Unsigned Intra-Procedure 05/17/2019 Vishnu Longoria RN 9:49:32 AM Intra-Procedure 05/17/2019 Brittany Adams 9:49:56 AM RT(R) Intra-Procedure 05/17/2019 Sai Murray 9:50:12 AM [facility] [address] [place] [address]
[2019-05-17] MEDS ORDERED: ALBUTEROL SULF8.5 GM INH (07:17)
[2019-05-17 07:24] VITALS: BP 136/78; Ht 188 cm; Wt 111.4 kg
[2019-05-17 08:29] LABS: BASOPHILS 0.3 % (0-2); EOSINOPHILS 3.6 % (0-7); HEMATOCRIT 48.5 % (42.0-54.0); HEMOGLOBIN 16.7 g/dL (13.5-17.5); IMMATURE GRANULOCYTES 0.2 % (0-5); LYMPHOCYTES 23.7 % (15-50); MCH 30.8 pg (26.0-34.0); MCHC 34.4 g/dL (31.0-37.0); MCV 89.3 fL (80.0-100.0); MONOCYTES 9.5 % (2-11); NEUTROPHILS 62.7 % (40-80); PLATELET COUNT 236 10x3/uL (130-400); RBC 5.43 10x6/uL (4.20-6.10); RDW 12.9 % (11.5-14.5); WBC 6.6 10x3/uL (4.8-10.8)
[2019-05-17 08:35] LABS: ALT (SGPT) 21 U/L (10-68); CALC OSMOLALITY 281 mosm/kg (275-300); CALCIUM 8.9 mg/dL (8.5-10.1); CARBON DIOXIDE 27.8 mmol/L (21.0-32.0); CHLORIDE - SERUM 105 mmol/L (98-107); CHOL - HDL RATIO 3.4 ratio (2.3-4.9); CHOLESTEROL, TOTAL 130 mg/dL (0-200); GLUCOSE 92 mg/dL (74-106); HDL CHOLESTEROL 38 mg/dL (32-96); LDL CHOLESTEROL 75 mg/dL (0-100); SODIUM 142 mmol/L (136-145); TRIGLYCERIDE 87 mg/dL (30-200); UREA NITROGEN 11 mg/dL (7-18); eGFR NON AFRICAN AMERICAN 81 mL/min (90-120)
--- NOTE | 2019-05-17 09:58 | NUR ---
PT ARRIVED BY STRETCHER. PLACED ON MONITORS. ASSESSMENT COMPLETED. VSS. FAMILY AT BEDSIDE.
--- NOTE | 2019-05-17 10:15 | NUR ---
PT SITTING UP IN BED VISITING WITH FAMILY. RIGHT RADIAL Z BAND IN PLACE. NO BLEEDING/HEMATOMA NOTED. CALL LIGHT WITHIN REACH. VSS AT THIS TIME. SET UP WITH SANDWICH TRAY AND DRINK AT THIS TIME. DENIES NAUSEA/VOMITING.
--- NOTE | 2019-05-17 10:45 | NUR ---
2cc OF AIR REMOVED FROM Z BAND. NO BLEEDING/HEMATOMA NOTED. VSS. CALL LIGHT WITHIN REACH. FAMILY AT BEDSIDE.
--- NOTE | 2019-05-17 11:00 | NUR ---
3cc OF AIR REMOVED FROM Z BAND. NO BLEEDING/HEMATOMA NOTED. VSS. CALL LIGHT WITHIN REACH. FAMILY AT BEDSIDE.
--- NOTE | 2019-05-17 11:20 | NUR ---
3cc OF AIR REMOVED FROM Z BAND. TOLERATING WELL. NO BLEEDING/HEMATOMA NOTED. VSS. FAMILY AT BEDSIDE.
--- NOTE | 2019-05-17 12:08 | NUR ---
BP STABLE AT 93/50. PT DENIES DIZZINESS. ALERT AND ORIENTED. RIGHT Z BAND REMOVED AND DRESSING APPLIED. RIGHT WRIST BRACE IN PLACE. NO BLEEDING/HEMATOMA NOTED. PIV D/C'D WITH CATH TIP INTACT. TOLERATED WELL. PT INSTRUCTED TO GET UP AND DRESSED. FAMILY AT BEDSIDE TO ASSIST.
--- NOTE | 2019-05-17 12:10 | NUR ---
DISCUSSED DISCHARGE INSTRUCTIONS WITH PT AND PT'S FAMILY. THEY VOICED UNDERSTANDING.
--- NOTE | 2019-05-17 12:20 | NUR ---
RIGHT RADIAL DRESSING C/D/I. NO S/S OF HEMATOMA/BLEEDING NOTED. RIGHT WRIST BRACE IN PLACE. PT TAKEN BY WHEELCHAIR TO RESTROOM. VOIDED WITHOUT DIFFICULTY. TAKEN OUT TO VEHICLE. NO S/S OF DISTRESS NOTED. ALL BELONGINGS AND PAPERWORK IN HAND.
--- NOTE | 2019-05-18 14:04 | OP ---
PATIENT NAME: DIANN NEWMAN MEDICAL RECORD: [id number] :60 LOCATION:D.CAT ADMISSION DATE: SURGEON: LAURA WOMACK MD DATE OF OPERATION: 05/17/2019 DATE OF SERVICE: 05/17/2019 PROCEDURES: 1. Left heart catheterization. 2. Selective coronary angiography. 3. Left ventriculogram. INDICATION: Angina, abnormal nuclear stress test. DESCRIPTION OF PROCEDURE: After informed consent was obtained and after a detailed description of risks, benefits as well as alternative therapies, the patient elected to proceed with angiogram and heart catheterization. The right radial area was prepped and draped in normal sterile fashion. Right radial artery was cannulated via modified Seldinger technique with placement of 5-Bolivian sheath. All catheters exchanged through this sheath. FINDINGS: Left ventriculogram was performed in standard 30-degree TRAYLOR view, reveals good cardiac wall motion throughout all segments. Overall ejection fraction estimated at 60%. SELECTIVE CORONARY ANGIOGRAPHY: Left main, left anterior descending, left circumflex, and right coronary artery are all smooth-walled vessels with no angiographic evidence of coronary artery disease. OVERALL IMPRESSION: 1. No angiographic evidence of coronary artery disease. 2. Normal left heart pressures. 3. Normal left ventricular systolic function. TRANSINT:[id number] Voice Confirmation ID: [id number] DOCUMENT ID: [id number] LAURA WOMACK MD at 1404 CC: [id number] DICTATION DATE: 05/17/19 0944 HYDRATE CONTROL TENDER: 05/17/19 1248 DEP CLI 05/17/19 [place] [id number]
== END 2019-05-17 12:20 | disposition home or self-care (01) ==
LOC: D.CATH 06:42
PROVIDERS: ATTEND Internal Medicine Interventional Cardiology
DX: I20.9 Angina pectoris, unspecified (principal); R94.39 Abnormal result of other cardiovascular function study; I10 Essential (primary) hypertension; R06.09 Other forms of dyspnea; Z72.0 Tobacco use; R42 Dizziness and giddiness; R07.9 Chest pain, unspecified

== ENCOUNTER 2019-09-08 12:19 | Emergency (ER) | payer OTHER ==
[~2019-09-08] VITALS: Ht 188 cm; Wt 112.3 kg
[~2019-09-08 12:19] MED LIST changes: +ALBUTEROL SULF8.5 GM INH
[2019-09-08 12:40] VITALS: Ht 188 cm; Wt 112.3 kg
[2019-09-08] MEDS ORDERED: CYCLOBENZAPRINE10 MG PO (14:41)
[2019-09-08 15:09] VITALS: BP 120/84
== END 2019-09-08 15:10 | disposition home or self-care (01) ==
LOC: D.ER 12:19
DX: M54.9 Dorsalgia, unspecified (principal); G89.29 Other chronic pain; K21.9 Gastro-esophageal reflux disease without esophagitis; I10 Essential (primary) hypertension; J44.9 Chronic obstructive pulmonary disease, unspecified

== ENCOUNTER → 2019-10-23 13:11 | Outpatient (CLI) | payer OTHER ==
[2019-09-08 12:40] VITALS: BMI 31.7
[~2019-10-23 13:11] MED LIST changes: +CYCLOBENZAPRINE10 MG PO
[2019-10-23 13:39] LABS: BASOPHILS 0.4 % (0-2); EOSINOPHILS 2.1 % (0-7); HEMATOCRIT 47.3 % (42.0-54.0); HEMOGLOBIN 16.1 g/dL (13.5-17.5); IMMATURE GRANULOCYTES 0.3 % (0-5); LYMPHOCYTES 26.4 % (15-50); MCH 30.4 pg (26.0-34.0); MCV 89.4 fL (80.0-100.0); MEAN PLATELET VOLUME 9.3 fL (7.4-10.4); MONOCYTES 8.6 % (2-11); NEUTROPHILS 62.2 % (40-80); PLATELET COUNT 229 10x3/uL (130-400); RBC 5.29 10x6/uL (4.20-6.10); RDW 12.9 % (11.5-14.5)
[2019-10-23 14:04] LABS: ALBUMIN 3.8 g/dL (3.4-5.0); ANION GAP 8.2 mmol/L (8-16); BILIRUBIN - TOTAL 0.67 mg/dL (0.2-1.3); CALCIUM 8.6 mg/dL (8.5-10.1); CARBON DIOXIDE 29.8 mmol/L (21.0-32.0); CREATININE - SERUM 1.1 mg/dL (0.6-1.3); PROTEIN - SERUM 7.3 g/dL (6.4-8.2)
== END | disposition home or self-care (01) ==
LOC: D.LABREF 13:11
PROVIDERS: ATTEND Internal Medicine Pulmonary Disease
DX: R53.83 Other fatigue (principal); R06.00 Dyspnea, unspecified; R07.89 Other chest pain

== ENCOUNTER → 2019-10-24 10:59 | Outpatient (CLI) | payer OTHER ==
[2019-09-08 12:40] VITALS: BMI 31.7
== END | disposition home or self-care (01) ==
LOC: D.CT 10:59
PROVIDERS: ATTEND Internal Medicine Pulmonary Disease
DX: R79.1 Abnormal coagulation profile (principal)

== ENCOUNTER → 2019-12-18 10:11 | Outpatient (CLI) | payer OTHER ==
[2019-09-08 12:40] VITALS: BMI 31.7
== END | disposition home or self-care (01) ==
LOC: D.ECHO 10:05
PROVIDERS: ATTEND Internal Medicine Pulmonary Disease
DX: I50.9 Heart failure, unspecified (principal)

== ENCOUNTER 2020-10-10 13:40 | Observation (INO) | payer OTHER ==
[~2020-10-10] VITALS: Ht 188 cm; Wt 111.2 kg
--- NOTE | ~2020-10-10 | EC ---
PATIENT:DIANN NEWMAN DATE OF SERVICE: 10/10/20 SEX: M MEDICAL RECORD: [id number] DATE OF : 60 LOCATION:D.M2 D.212 AGE OF PATIENT: 60 ADMISSION DATE: 10/10/20 REFERRING PHYSICIAN: INTERPRETING PHYSICIAN: MONICO BIRD MD ECHOCARDIOGRAM REPORT ECHO CHARGES 4 ECHO COMPLETE Date: 10/11/20 CLINICAL DIAGNOSIS: DYSPNEA ECHOCARDIOGRAPHIC MEASUREMENTS (adult normal given) AC root (d.<3.7cm) 3.5 cm LV Septum d (<1.2 cm> 1.1 cm Valve Excursion 2.0 cm LV Septum (systole) 1.4 cm Left Atria (s.<4.0cm> 4.6 cm LVPW d(<1.2cm) 1.2 cm RV (d.<2.3cm) 3.8 cm LVPW (sytole) 1.1 cm LV diastole(<5.6CM) 4.2 cm MV E-F(>70mm/sec) cm LV systole 2.9 cm LVOT Diameter 2.1 cm MV exc.(>10mm) cm Est.ejection fraction (50-75%) 55 % DOPPLER: LVIT cm/sec A 87 cm/sec E 72 cm/sec LA cm/sec RVSP 34 mmHg LVOT 114 cm/sec AOP1/2T m/s Asc. Ao 147 cm/sec RVOT 86 cm/sec RA cm/sec PA 87 cm/sec AV Gradient Peak 8 mmHg AV Mean 4 mmHg AV Area 2.4 cm MV Gradient Peak 4 mmHg MV Mean 1 mmHg MV Area cm COMMENTS: Back Tacker: Gianni PETERSON Geotechnician: 3 Dr. Ruano TAPE# Pericardial Effusion N DATE OF SERVICE: Adequate 2D, color flow imaging, spectral Doppler, and M-Mode. FINDINGS: No LVH. LV internal dimensions are normal. Wall motion normal. EF is greater than or equal to 55%. Aortic valve is tricuspid. No evidence of stenosis by Doppler interrogation. Left atrium is mildly dilated at 4.6 cm. Mitral valve shows no prolapse. Trace MR. Ride side is grossly normal. Trace TR. ECHOCARDIOGRAM REPORT [id number] DIANN NEWMAN TRANSINT:[id number] Voice Confirmation ID: [id number] DOCUMENT ID: [id number] MONICO BIRD MD CC: [id number] DICTATION DATE: 10/14/20 1104 TRADE SHOW MANAGER: 10/14/201941 DIS IN 10/11/20 [facility] [address] [place] [id number]
--- NOTE | ~2020-10-10 | OP ---
PATIENT NAME: DIANN NEWMAN MEDICAL RECORD: [id number] :60 LOCATION:D.M2 D.2120 ADMISSION DATE:10/10/20 SURGEON: MONICO BIRD MD DATE OF OPERATION: 10/11/2020 PROCEDURE: Left heart catheterization, selective coronary angiography, right femoral artery approach. CATHETERS: A 5-Mohawk sheath, 5/4 left and right Maryellen, and 5/4 pig. The procedure was well tolerated. The patient was returned to the valle. Sheath was removed. ExoSeal device placed. FINDINGS: Left ventriculography in 30-degree TRAYLOR view, normal wall motion and normal systolic function. CORONARY ANATOMY: 1. Left main: Left main is free of disease. 2. LAD is free of disease in the diagonal system. 3. Circumflex is free of disease in the marginal system. 4. Right coronary artery is dominant artery, gives rise to PDA, free of disease. IMPRESSION: Normal LV systolic function. Normal coronary anatomy. TRANSINT:[id number] Voice Confirmation ID: [id number] DOCUMENT ID: [id number] MONICO BIRD MD CC: [id number] DICTATION DATE: 10/11/20 1103 KNURLING MACHINE TENDER: 10/11/20 1506 ADM IN [facility] [address] [place] [id number]
--- NOTE | ~2020-10-10 | HEMODYNAMI ---
PATIENT:DIANN NEWMAN MEDICAL RECORD: [id number] : 60 LOCATION:[facility] D.212 ADMISSION DATE: 10/10/20 Generatedon:110:54 Patient name: DIANN NEWMAN Patient #: [id number] SSN: [id number] : 1960 Date of study: 10/11/2020 Page: Of Hemodynamic Procedure Report Patient Data Patient Demographics Procedure consent was obtained First Name: DIANN Gender: Male Last Name: TRENT : 1960 Middle Initial: EDWARD Age: 60 year(s) Patient #: [id number] Race: SSN: [id number] Additional ID: [id number] Contact details Address: [address] [place] [address] State: [place] City: [facility] Zip code: [address] Past Medical History Allergies: No known allergies Admission Admission Data Admission Date: 10/10/2020 Admission Time: 17:21 Arrival Date: 10/11/2020 Arrival Time: 0:00 Room #: D.2121 Height (in.): 73.62 BSA: 2.36 (m2) Height (cm.): 187 BMI: 31.74 (kg/m2) Weight (lbs.): 244.71 Weight (kg.): 111 Lab Results Lab Result Date: 10/11/2020 Lab Result Time: 0:00 Biochemistry Name Units Result Min Max BUN mg/dl 9 --(*---)-- 7 18 Creatinine mg/dl 0.9 --(-*--)-- 0.6 1.3 eGFR ml/min 90 --(*---)-- 90 120 NONAFRICAN CBC Name Units Result Min Max Hematocrit % 45.3 --(-*--)-- 42 54 Hemoglobin g/dl 15.3 --(-*--)-- 13.5 17.5 Procedure Procedure Types Cath Procedure Diagnostic Procedure LHC LHC w/Coronaries Procedure Description Procedure Date Procedure Date: 10/11/2020 Procedure Start Time: 10:44 Procedure End Time: 10:52 Procedure Staff Name Function Luis Miguel Garcia MD Performing Physician Ney Ruiz RT Monitor Brittany Adams RT Scrub Ashwin Martinez RN Nurse Procedure Data Cath Procedure Fluoroscopy Diagnostic fluoroscopy Total fluoroscopy Time: 1 time: 1 min min Diagnostic fluoroscopy Total fluoroscopy dose: 342 dose: 342 mGy mGy Contrast Material Contrast Material Type Amount (ml) Isovue 370 48 Entry Location Entry Primary Successful Side Size Upsize Upsize Entry Closure Succes sful Closure Location (Fr) 1 (Fr) 2 (Fr) Remarks Device Remarks Femoral Right 5 Fr Exoseal artery Estimated blood loss: 5 ml Diagnostic catheters Device Type Used For End Catheter Placement MULTIPACK JL 4.0 5Fr Left Coronary catheter Angiography MULTIPACK 3DRC 5Fr Right Coronary catheter Angiography MULTIPACK Pigtail 5 Fr LV Angiography catheter Procedure Complications No complications Procedure Medications Medication Administration Route Dosage 0.9% NaCl I.V. 100 ml/hr Oxygen etCO2 Nasal cannula 2 l/min Heparin Flush Bag added to field 2 bags (1000units/500ml NS) Lidocaine 2% added to field 20 Versed I.V. 1 mg Fentanyl I.V. 50 mcg Versed I.V. 1 mg Fentanyl I.V. 50 mcg Versed I.V. 1 mg Fentanyl I.V. 50 mcg Hemodynamics Rest BSA: 2.36 (m2) HGB: 15.3 (g/dl) O2 Consumption: Estimated: 273.99 (ml/min) O2 Co nsumption indexed: Estimated:116.1 (ml/min/m) Heart Rate: 66 (bpm) Pressure Samples Time Site Value (mmHg) Purpose Heart Use Rate(bpm) 10:49 LV 108/9,13 EDP 62 Gradients Valve Time Site Site Mean SEP/DFP Peak To Heart Use 1 2 (mmHg) (sec/min) Peak Rate (mmHg) (bpm) Aortic 10:49 LV AO 60 Snapshots Pre Cath Intra NCS Post Cath Vital Signs Time Heart Resp SPO2 etCO2 NIBP (mmHg) Rhythm Pain Sedation Rate (ipm) (%) (mmHg) Status Level (bpm) 10:15:01 68 17 100 24 158/91(133) NSR 0 (11) 10(A) , No pain 10:19:15 65 14 100 25.5 140/94(123) NSR 0 (11) 10(A) , No pain 10:23:29 64 19 99 20.3 142/97(113) NSR 0 (11) 10(A) , No pain 10:27:43 63 13 99 24 145/93(110) NSR 0 (11) 10(A) , No pain 10:31:59 64 13 99 12.7 145/91(105) NSR 0 (11) 10(A) , No pain 10:36:17 61 25 98 24 130/91(110) NSR 0 (11) 10(A) , No pain 10:40:29 62 19 97 0 133/87(103) NSR 0 (11) 10(A) , No pain 10:44:43 59 20 97 25.5 138/90(104) NSR 0 (11) 10(A) , No pain 10:48:55 60 19 99 19.5 139/93(107) NSR 0 (11) 10(A) , No pain Medications Time Medication Route Dose Verified Delivered Reason Notes Eff ectiveness by by 10:13:59 0.9% NaCl I.V. 100 Luis Miguel Ashwin used for ml/hr JoseHeriberto Martinez regulatory affairs manager 10:14:05 Oxygen etCO2 2 Luis Miguel Ashwin used for Nasal l/min Jose Juan regulatory affairs manager cannula 10:14:17 Heparin Flush added 2 Luis Miguel Luis Miguel used for Bag to bags [facility] procedure (1000units/500ml field MD TYSON NS) 10:14:36 Lidocaine 2% added 20ml Luis Miguel Luis Miguel for local to vial [facility] anesthetic field MD TYSON 10:43:35 Versed I.V. 1 mg Luis Miguel Ashwin for JoseHeriberto Martinez RN sedation 10:43:42 Fentanyl I.V. 50 Luis Miguel Ashwin for mcg [facility] Her[facility] Martinez RN sedation 10:45:14 Versed I.V. 1 mg Luis Miguel Ashwin for JoseHeriberto Martinez RN sedation 10:45:17 Fentanyl I.V. 50 Luis Miguel Ashwin for mcg [facility] Heriberto Martinez RN sedation 10:47:42 Versed I.V. 1 mg Luis Miguel Ashwin for JoseHeriberto Martinez RN sedation 10:47:45 Fentanyl I.V. 50 Luis Miguel Ashwin for [facility] Juan RN sedation Procedure Log Time Note 9:45:07 Informed consent obtained and on chart 9:45:26 Procedure Status Urgent Heart Cath (IP). 9:45:28 Time tracking: Regular hours (M-F 7:00 - 5:00) 9:45:31 Plan of Care:Hemodynamics will remain stable., Cardiac rhythm will remain stable., Comfort level will be maintained., Respiratory function will remain adequate., Patient/ family verbilizes understanding of procedure., Procedure tolerated without complication., Recovers from procedure without complications.. 9:45:33 Ashwin Martinez RN sent for patient. Start room use. 10:07:28 Patient received from Med II to CCL 1 Alert and oriented. Tansferred to table in Supine position. 10:07:29 Warm blankets applied, and aston hugger turned on for patient comfort. 10:07:30 Correct patient and procedure confirmed by team. 10:07:31 ECG and BP/O2 sat monitors applied to patient. 10:07:34 Full Disclosure recording started 10:07:34 Pre-procedure instructions explained to patient. 10:07:35 Pre-op teaching completed and patient verbalized understanding. 10:07:36 Family in patients room. 10:07:37 Patient NPO since Midnight. 10:07:42 Patient allergic to No known allergies 10:07:48 Is patient on blood thinner?No 10:07:49 Patient diabetic? No. 10:07:51 Is the patient allergic to Iodine/contrast media? No. 10:07:55 Previous problem with sedation/anesthesia? No ? 10:07:56 Snore? Yes 10:07:57 Sleep apnea? No 10:07:58 Deviated septum? No 10:07:58 Opens mouth fully? Yes 10:07:59 Sticks out tongue? Yes 10:08:06 Airway obstruction? Yes COPD 10:08:18 Dentures? No ? 10:08:21 Pre procedure: right dorsailis pedis pulse 1+ Palpable, but thready & weak; easily obliterated 10:08:24 Patient pain scale 0/10 ?. 10:08:29 IV patent on arrival in right hand with 0.9% NaCl at O. 10:08:57 Lab Result : BUN 9 mg/dl 10:08:57 Lab Result : eGFR NONAFRICAN 90 ml/min 10:08:57 Lab Result : Creatinine 0.9 mg/dl 10:08:57 Lab Result : Hemoglobin 15.3 g/dl 10::57 Lab Result : Hematocrit 45.3 % 10:: Lab results completed and on chart. 10:09:10 Right groin area was prepped with chlora-prep and draped in sterile fashion 10:09:11 Alarms reviewed by R. N. 10:09:11 Sharps counted by scrub and verified by R.N. 10:09:14 Use device set Femoral Dx 10:09:15 ACIST Syringe (17079) opened to sterile field. 10:09:16 Bag Decanter (2002S) opened to sterile field. 10:09:16 ACIST Hand Control (18090) opened to sterile field. 10:09:17 ACIST Manifold (40134) opened to sterile field. 10:09:18 Tegaderm 4 x 4 (1626W) opened to sterile field. 10:09:18 Medline Cath Pack ([id number]) opened to sterile field. 10:09:19 DIAGNOSTIC Multipack 5Fr catheter set ([id number]) opened to sterile field. 10:09:20 SHEATH 5FR Marshallberg (SJV332) opened to sterile field. 10:09:21 EMERALD Guide Wire (502-739) opened to sterile field. 10:09:32 Patient Weight : 244.71 lbs 10:09:35 Patient Height : 73.62 inches 10:09:38 Arrival Date: 10/11/2020 12:00:00 AM 10:13:05 Vital chart was started 10:13:28 Risk of Mortality: <.1% 10:13:32 Risk of blood transfusion: 1.2% 10:13:58 Risk of ARTHUR: 0.7% 10:13:59 0.9% NaCl 100 ml/hr I.V. was administered by Ashwin Martinez RN; used for procedure; Verbal order read back and verified. 10:14:05 Oxygen 2 l/min etCO2 Nasal cannula was administered by Ashwin Martinez RN; used for procedure; Verbal order read back and verified. 10:14:17 Heparin Flush Bag (1000units/500ml NS) 2 bags added to field was administered by Luis Miguel Garcia MD; used for procedure; Verbal order read back and verified. 10:14:36 Lidocaine 2% 20ml vial added to field was administered by Luis Miguel Garcia MD; for local anesthetic; Verbal order read back and verified. 10:16:18 Baseline sample Acquired. 10:16:20 Rhythm: sinus rhythm 10:16:33 H&P Date Dictated: 10/11/2020 Within 30 days and on chart.. 10:42:50 Physician arrived 10:42:51 --------ALL STOP TIME OUT------ 10:42:51 Final Timeout: patient, procedure, and site verified with staff and physician. All members of the team are in agreement. 10:42:53 Right groin site verified by team. 10:42:58 Fire Safety Assessment: A--An alcohol-based skin anteseptic being used preoperatively., B--The operative or invasive procedure is being performed above the xiphoid process or in the oropharynx., C--Open oxygen or nitrous oxide is being used., D--An ESU, laser, or fiber-optic light is being used., E--There are other possible contributors. 10:43:01 Physical assessment completed. ASA score P 2 - A patient with mild systemic disease as per Luis Miguel Garcia MD. 10:43:23 1) 90+ Normal kidney functon but urine findings or structural abnormalities or genetic trait point to kidney disease. 10:43:28 Maximum allowable contrast dose (3.7 X eGFR X 0.75)250 ml. 10:43:32 Sedation plan: IV Moderate Sedation Medication:Versed, Fentanyl 10:43:35 Versed 1 mg I.V. was administered by Ashwin Martinez RN; for sedation; Verbal order read back and verified. 10:43:42 Fentanyl 50 mcg I.V. was administered by Ashwin Martinez RN; for sedation; Verbal order read back and verified. 10:43:56 Procedure started. 10:44:18 Local anesthetic to right femoral artery with Lidocaine 2% by Luis Miguel Garcia MD.INITIAL ACCESS ONLY 10:44:27 A 5 Fr sheath was inserted into the Right Femoral artery 10:44:41 A MULTIPACK JL 4.0 5Fr catheter was advanced over the wire and used for Left Coronary Angiography. 10:44:45 LCA angiography performed. 10:45:14 Versed 1 mg I.V. was administered by Ashwin Martinez RN; for sedation; Verbal order read back and verified. 10:45:17 Fentanyl 50 mcg I.V. was administered by Ashwin Martinez RN; for sedation; Verbal order read back and verified. 10:46:25 Catheter removed. 10:46:32 A MULTIPACK 3DRC 5Fr catheter was advanced over the wire and used for Right Coronary Angiography. 10:46:36 RCA angiography performed. 10:46:43 Zero performed for pressure channel P1 10:46:47 Zero performed for pressure channel P1 10:47:34 Catheter removed. 10:47:42 Versed 1 mg I.V. was administered by Ashwin Martinez RN; for sedation; Verbal order read back and verified. 10:47:42 A MULTIPACK Pigtail 5 Fr catheter was advanced over the wire and used for LV Angiography. 10:47:45 Fentanyl 50 mcg I.V. was administered by Ashwin Martinez RN; for sedation; Verbal order read back and verified. 10:48:02 LV gram done using TRAYLOR 10:48:03 LV hemodynamics recorded. 10:48:06 Injector settings: Ml/sec: 10, Volume: 20, 10:50:01 EF : 50 % 10:50:03 Catheter removed. 10:50:13 Sheath removed intact; hemostasis achieved with Exoseal to the Right Femoral artery. 10:50:15 Procedure ended.(Physican Out) 10:50:33 Contrast amount:Isovue 370 48ml. 10:50:37 Fluoroscopy time 01.00 minutes. 10:50:54 Flurop Dose total: 342 10:50:54 Fluoroscopy dose: 342 mGy 10:50:59 Dose Area Product 48171 mGy/cm. 10:51:02 Maximum allowable dose exceeded? No. 10:51:03 Sharps counted by scrub and verified by R.N. 10:51:08 Insertion/operative site no bleeding no hematoma. 10:51:10 Post-op/insertion site Right Femoral artery dressed using a 4 x 4 and Tegaderm. 10:51:13 Post right femoral artery:stable 10:51:15 Post Procedure Pulses reassessed and unchanged 10:51:18 Post procedure: right dorsailis pedis pulse 2+ Normal; easily identifiable; not easily obliterated. 10:51:27 Post procedure rhythm: unchanged. 10:51:40 Estimated blood loss: 5 ml 10:51:42 Post procedure instruction explained to patient.Patient verbalizes understanding. 10:51:48 Procedure and supply charges have been captured, reviewed, submitted and are correct. 10:51:50 EXOSEAL 5Fr (EX500) opened to sterile field. 10:52:11 Procedure Complication : No complications 10:52:16 Vital chart was stopped 10:52:20 Operative report dictated upon procedure completion. 10:52:20 See physician's report for complete and final results. 10:52:22 Report given to PCU. 10:52:25 Patient transfered to PCU with Bed. 10:52:28 Procedure ended. 10:52:28 Full Disclosure recording stopped 10:52:32 End room use (Document Last) 10:53:03 End room use (Document Last) 10:53:29 End room use (Document Last) Device Usage Item Name Manufacture Quantity Catalog Hospital Part Current Minimal L ot# / Number Charge Number Stock Stock Serial# Code ACIST Acist 1 99170 276006 209137 [id number] 20 Syringe Medical (90271) Systems Inc Bag Microtek 1 588198 09120 500533 5 Decanter Medical Inc. () ACIST Hand Acist 1 10962 585861 590050 089233 5 Control Medical (89646) Systems Inc ACIST Acist 1 37925 226235 879591 118771 5 Manifold Medical (83839) Systems Inc Tegaderm 4 3M 1 1626W 232288 593486 971862 5 x 4 (1626W) Medline Medline 1 [id number] 805085 36186 750523 5 Cath Pack ([id number]) DIAGNOSTIC Cardinal 1 [id number] 019203 37594 195896 30 Multipack Health 5Fr catheter set (SI7724) SHEATH 5FR Terumo 1 VYK898 151237 694572 466711 5 Marshallberg (JVI895) EMERALD Cardinal 1 502-455 176573 484813 047409 5 Guide Wire Health (502-455) MULTIPACK Cardinal 1 828635 5 JL 4.0 5Fr Health catheter MULTIPACK Cardinal 1 932388 5 3DRC 5Fr Health catheter MULTIPACK Cardinal 1 557347 5 Pigtail 5 Health Fr catheter EXOSEAL 5Fr Cardinal 1 EX500 [id number] [id number] 469798 10 (EX500) Health Signature Audit [place] Stage Time Signature Unsigned Intra-Procedure 10/11/2020 Ney RAMOS(R) 10:53:03 AM Intra-Procedure 10/11/2020 Ashwin Martinez RN 10:53:29 AM Intra-Procedure 10/11/2020 Luis Miguel Hatfield 10:54:01 AM Heriberto TYSON [place] [id number] [place] [address]
[2020-10-10 14:23] LABS: EOSINOPHILS 2.9 % (0-7); HEMATOCRIT 47.4 % (42.0-54.0); HEMOGLOBIN 15.7 g/dL (13.5-17.5); LYMPHOCYTES 23.1 % (15-50); MCH 29.1 pg (26.0-34.0); MCHC 33.1 g/dL (31.0-37.0); MCV 88.1 fL (80.0-100.0); MEAN PLATELET VOLUME 6.6 fL (7.4-10.4); MONOCYTES 7.9 % (2-11); NEUTROPHILS 65.1 % (40-80); RBC 5.38 10x6/uL (4.20-6.10); RDW 13.7 % (11.5-14.5); WBC 7.6 10x3/uL (4.8-10.8)
[2020-10-10 14:32] LABS: CALC OSMOLALITY 276 mosm/kg (275-300); CALCIUM 8.9 mg/dL (8.5-10.1); CARBON DIOXIDE 25.5 mmol/L (21.0-32.0); CHLORIDE - SERUM 105 mmol/L (98-107); CREATININE - SERUM 0.9 mg/dL (0.6-1.3); GLUCOSE 100 mg/dL (74-106); POTASSIUM - SERUM 3.9 mmol/L (3.5-5.1); SODIUM 139 mmol/L (136-145); UREA NITROGEN 10 mg/dL (7-18); eGFR NON AFRICAN AMERICAN > 90 mL/min (90-120)
[2020-10-10 14:34] LABS: APTT 29.6 SECONDS (22.8-39.4); INR 1.14 (0.85-1.17); PROTIME 13.5 SECONDS (11.6-15.0)
[2020-10-10 14:38] LABS: PLATELET COUNT 283 10x3/uL (130-400)
[2020-10-10 14:47] LABS: ALBUMIN 3.4 g/dL (3.4-5.0); ALKALINE PHOSPHATASE 114 U/L (30-120); ALT (SGPT) 19 U/L (10-68); BILIRUBIN - TOTAL 0.35 mg/dL (0.2-1.3); CKMB 0.6 U/L (0.0-3.6); CREATINE KINASE 86 UL (21-232); MAGNESIUM - SERUM 2.2 mg/dL (1.8-2.4); PROTEIN - SERUM 7.3 g/dL (6.4-8.2); TROPONIN-I < 0.017 ng/mL (0.000-0.060)
[2020-10-10 16:40] VITALS: BP 122/79
--- NOTE | 2020-10-10 17:37 | NUR ---
PT TO CT
[2020-10-10 17:50] VITALS: BP 135/107
[2020-10-10] MEDS ORDERED: PRED FORTE5 ML LEFT EYE (17:53)
[2020-10-10 20:51] LABS: CKMB 0.4 U/L (0.0-3.6); CREATINE KINASE 59 UL (21-232)
[2020-10-10 20:59] LABS: TROPONIN-I < 0.017 ng/mL (0.000-0.060)
[2020-10-10 23:51] VITALS: BP 116/69
--- NOTE | 2020-10-11 00:47 | NUR ---
REPORT RECEIVED. PT A&O, UP IN BED WITH FAMILY AT BEDSIDE. NO S/S OF DISTRESS OBSERVED. RR EVEN & UNLABORED ON RA. SB 51 ON TELE. IV TO R HAND WITH NS INFUSING AT 75CC/HR. BED LOCKED AND LOWERED, CL IN REACH. ASSESSMENT COMPLETE. WILL CONT POC.
[2020-10-11 03:45] VITALS: BP 129/81; Ht 188 cm; Wt 111.2 kg
[2020-10-11 04:04] LABS: BASOPHILS 0.9 % (0-2); HEMATOCRIT 45.3 % (42.0-54.0); HEMOGLOBIN 15.3 g/dL (13.5-17.5); LYMPHOCYTES 26.3 % (15-50); MCHC 33.8 g/dL (31.0-37.0); MCV 88.7 fL (80.0-100.0); MEAN PLATELET VOLUME 6.6 fL (7.4-10.4); MONOCYTES 8.4 % (2-11); NEUTROPHILS 60.4 % (40-80); PLATELET COUNT 233 10x3/uL (130-400); RBC 5.11 10x6/uL (4.20-6.10); RDW 13.8 % (11.5-14.5); WBC 6.3 10x3/uL (4.8-10.8)
[2020-10-11 04:39] LABS: ALBUMIN 3.1 g/dL (3.4-5.0); ALKALINE PHOSPHATASE 89 U/L (30-120); ALT (SGPT) 17 U/L (10-68); BILIRUBIN - TOTAL 0.52 mg/dL (0.2-1.3); CALC OSMOLALITY 279 mosm/kg (275-300); CALCIUM 8.3 mg/dL (8.5-10.1); CARBON DIOXIDE 27.4 mmol/L (21.0-32.0); CHLORIDE - SERUM 108 mmol/L (98-107); CKMB 0.7 U/L (0.0-3.6); CREATINE KINASE 77 UL (21-232); GLUCOSE 95 mg/dL (74-106); MAGNESIUM - SERUM 2.3 mg/dL (1.8-2.4); POTASSIUM - SERUM 4.1 mmol/L (3.5-5.1); PROTEIN - SERUM 6.6 g/dL (6.4-8.2); SODIUM 141 mmol/L (136-145); UREA NITROGEN 9 mg/dL (7-18); eGFR NON AFRICAN AMERICAN 81 mL/min (90-120)
[2020-10-11 04:40] LABS: TROPONIN-I < 0.017 ng/mL (0.000-0.060)
[2020-10-11 05:28] VITALS: BP 126/84
[2020-10-11 08:23] LABS: ALBUMIN 3.3 g/dL (3.4-5.0); ALKALINE PHOSPHATASE 102 U/L (30-120); ALT (SGPT) 19 U/L (10-68); BILIRUBIN - TOTAL 0.58 mg/dL (0.2-1.3); CALC OSMOLALITY 274 mosm/kg (275-300); CALCIUM 8.6 mg/dL (8.5-10.1); CARBON DIOXIDE 25.7 mmol/L (21.0-32.0); CHLORIDE - SERUM 106 mmol/L (98-107); CKMB 0.5 U/L (0.0-3.6); CREATINE KINASE 83 UL (21-232); CREATININE - SERUM 0.9 mg/dL (0.6-1.3); GLUCOSE 92 mg/dL (74-106); MAGNESIUM - SERUM 2.3 mg/dL (1.8-2.4); POTASSIUM - SERUM 4.4 mmol/L (3.5-5.1); SODIUM 138 mmol/L (136-145); TROPONIN-I < 0.017 ng/mL (0.000-0.060); UREA NITROGEN 9 mg/dL (7-18); eGFR NON AFRICAN AMERICAN > 90 mL/min (90-120)
[2020-10-11 09:00] VITALS: BP 115/50
[2020-10-11 09:54] LABS: CHOL - HDL RATIO 3.3 ratio (2.3-4.9); LDL-HDL RATIO 1.9 ratio (1.5-3.5)
--- NOTE | 2020-10-11 11:17 | NUR ---
BACK FROM PUBLIC SAFETY DIRECTOR.
[2020-10-11] MEDS ORDERED: COREG 3.1253.125 MG PO (12:56)
--- NOTE | 2020-10-11 15:29 | NUR ---
D/C RIGHT HAND IV, TIP INTACT. DISCHARGE INSTRUCTIONS GIVEN VERBALLY AND HANDOUTS PROVIDED. TAKEN DOWN TO ED ENTRANCE VIA WHEELCHAIR.
== END 2020-10-11 15:30 | disposition home or self-care (01) ==
LOC: D.ER 13:40 → D.M2 17:21 → OBSVTIME 17:21 → D.M2 10-11 15:30
PROVIDERS: Emergency Medicine; Internal Medicine Interventional Cardiology; ADMIT Emergency Medicine; ATTEND Emergency Medicine
DX: I20.0 Unstable angina (principal); R07.9 Chest pain, unspecified; I10 Essential (primary) hypertension; J44.9 Chronic obstructive pulmonary disease, unspecified; K21.9 Gastro-esophageal reflux disease without esophagitis; R10.13 Epigastric pain; R06.02 Shortness of breath